=== PATIENT | female | born 1980 | race Caucasian/White ===

== ENCOUNTER 2018-02-26 14:54 | Emergency (ER) | payer OTHER ==
[2018-02-26 15:19] VITALS: BP 115/55; PULSE 85; TEMP 97.9; BMI 23.6
--- NOTE | 2018-02-26 15:20 | PDOC ---
Rapid Medical Evaluation Time Seen by Provider: 02/26/18 15:14 Medical Evaluation: Allergies Allergy/AdvReac Type Severity Reaction Status Date / Time No Known Allergies Allergy Verified 02/26/18 15:14 02/26/18 15:14 I have done a brief in-person assessment of this patient. The patient presents with a chief complaint of dizziness, nausea worse for past 2 days. Reports positive urine test. States greenish vaginal discharge x 2 months with no treatment. LMP 01/02/19 Pertinent physical exam findings NAD even and unlabored mild tenderness to lower abdomen I have ordered the following: urine preg, urine The patient will proceed to the Ed for further evaluation. Dx: nausea
[2018-02-26 16:18] LABS: HCG,QUALITATIVE URINE Positive
[2018-02-26 16:20] LABS: URINE APPEARANCE SLCLOUDY; URINE BILIRUBIN NEGATIVE (<2.0 mg/dL); URINE COLOR YELLOW; URINE GLUCOSE (UA) NEGATIVE (NEGATIVE); URINE KETONE NEGATIVE (NEGATIVE); URINE LEUK ESTERASE 3+ (NEGATIVE); URINE NITRITE NEGATIVE (NEGATIVE); URINE PROTEIN NEGATIVE (NEGATIVE); URINE UROBILINOGEN NEGATIVE mg/dL (0.2-1.0)
[2018-02-26 16:46] LABS: EPI CELLS FEW /HPF (FEW); URINE MUCUS RARE
--- NOTE | 2018-02-26 17:44 | PDOC ---
History of Present Illness - General Chief Complaint: ,Possible Stated Complaint: DIZZINESS Time Seen by Provider: 02/26/18 15:14 - History of Present Illness Initial Comments: 02/26/18 17:43 37 yo , LMP 01/02/18, at 8 wga confirmed home urine , who p/w epigastria abdominal pain, vomitting. Patient reports 1 month of unremitting, non pleuritic, non radiating, epigastria fullness, with no identifiable triggers or alleviators. Not alleviated with OTC Tylenol. Also endorses lightheadedness, lasting for seconds and resolving spontaneously. Aggravated with standing. + lower abdominal discomfort/pressure, no triggers or alleviators. + intermittent vaginal discharge x 1 month. + one episode of non bilious, non bloody emesis today. + decreased appetite. Denies postprandial pain. Denies BPR, urinary complaints, hematemesis, vaginal bleeding. Denies abdominal trauma. Patient denies [place], vision change, tinnitus, F/C, CP, Cough, wheezing, palpitations, SOB, urinary complaints, BPR, hematuria, diarrhea, constipation, weakness, sensory changes. PMHx: as noted above. Denies chronic NSAID use, endoscopy, or h/o abdominal surgery. ROS: as noted SHx: Denies Etoh, IVDA, tobacco use Allergies:NKDA Datastage Developer: None Past History - Past Medical History Allergies/Adverse Reactions: Allergies Allergy/AdvReac Type Severity Reaction Status Date / Time No Known Allergies Allergy Verified 02/26/18 15:14 Home Medications: Ambulatory Orders Cephalexin Monohydrate [Keflex -] 500 mg PO BID 7 Days #13 capsule MDD 2 tab 09/07 COPD: Yes Dialysis: No HTN: No - Surgical History Cholecystectomy: No - Immunization History Immunization Up to Date: No - Suicide/Smoking/Psychosocial Hx Smoking History: Never smoked Have you smoked in the past 12 months: No Information on smoking cessation initiated: No Hx Alcohol Use: No Drug/Substance Use Hx: No Review of Systems - Review of Systems Comments:: 02/26/18 17:43 GENERAL/CONSTITUTIONAL: No fever or chills. No weakness. HEAD, EYES, EARS, NOSE AND THROAT: No change in vision. No ear pain or discharge. No sore throat. CARDIOVASCULAR: No chest pain or shortness of breath RESPIRATORY: No cough, wheezing, or hemoptysis. GASTROINTESTINAL: + nausea, vomiting, abdominal pain. No diarrhea or constipation. GENITOURINARY: No dysuria, frequency, or change in urination. MUSCULOSKELETAL: No joint or muscle swelling or pain. No neck or back pain. SKIN: No rash NEUROLOGIC: + lightheadedness. No headache, vertigo, loss of consciousness, or change in strength/sensation. ENDOCRINE: No increased thirst. No abnormal weight change HEMATOLOGIC/LYMPHATIC: No anemia, easy bleeding, or history of blood clots. ALLERGIC/IMMUNOLOGIC: No hives or skin allergy. *Physical Exam - Vital Signs Last Vital Signs Temp Pulse Resp BP Pulse Ox 97.9 F 85 18 115/55 L 100 02/26/18 15:15 02/26/18 15:15 02/26/18 15:15 02/26/18 15:15 02/26/18 15:15 - Physical Exam Comments: 02/26/18 17:43 GENERAL: Awake, alert, and fully oriented, in no acute distress HEAD: No signs of trauma, normocephalic, atraumatic EYES: PERRLA, EOMI, sclera anicteric, conjunctiva clear ENT: Hearing grossly normal, nares patent, oropharynx clear without exudates. Moist mucosa NECK: Normal ROM, supple, no lymphadenopathy, JVD, or masses LUNGS: No distress, speaks full sentences, clear to auscultation bilaterally HEART: Regular rate and rhythm, normal S1 and S2, no murmurs, rubs or gallops, peripheral pulses normal and equal bilaterally. ABDOMEN: + epigastric ttp. Soft, NDS, normoactive bowel sounds. No guarding, no rebound. No masses. Neg CVA ttp. Neg goncalves sign. Neg McBurney point ttp. GENITORUINARY: Nml appearing external genitalia, absent blood in vaginal vault. Absent lesions. + scant white discharge. Cervical os closed. Neg CMT on BM. Neg adenexal tenderness. Chaperoned by Margi Cotton EXTREMITIES : Normal inspection, Normal range of motion, no edema. No clubbing or cyanosis. NEUROLOGICAL: Cranial nerves II through XII grossly intact. Normal speech, normal gait, no focal sensorimotor deficits SKIN: Warm, Dry, normal turgor, no rashes or lesions noted Moderate Sedation - Procedure Monitoring Vital Signs: Procedure Monitoring Vital Signs Temperature 97.9 F 02/26/18 15:15 Pulse Rate 85 02/26/18 15:15 Respiratory Rate 18 02/26/18 15:15 Blood Pressure 115/55 L 02/26/18 15:15 O2 Sat by Pulse Oximetry (%) 100 02/26/18 15:15 ED Treatment Course - LABORATORY CBC & Chemistry Diagram: 02/26/18 18:28 02/26/18 18:28 - ADDITIONAL ORDERS Additional order review: Laboratory Results 02/26/18 15:23 Urine Color Yellow Urine Appearance Slcloudy Urine pH 5.0 Ur Specific [place] 1.019 Urine Protein Negative Urine Glucose (UA) Negative Urine Ketones Negative Urine Blood Negative Urine Nitrite Negative Urine Bilirubin Negative Urine Urobilinogen Negative Ur Leukocyte Esterase 3+ H Urine WBC (Auto) 8 Urine RBC (Auto) 12 Ur Epithelial Cells Few Urine Mucus Rare Urine HCG, Qual Positive Medical Decision Making - Medical Decision Making 02/26/18 18:18 37 yo , LMP 01/02/18, at 4 wga confirmed home urine , who p/w epigastria abdominal pain, vomiting, lightheadedness.BP 115/55, vitals otherwise wnl, AF, A&Ox3. + Epigastric ttp. exam unremarkable. Will assess for viable IUP vs. cause of abdominal pain in preganancy. Will consider ectopic , threatened , ovarian pathology/torsion. Will also consider gastritis, esophagitis, gastroenteritis, biliary dz., pancreatitis, cystitis. Low suspicion appendicitis, colitis, pyelonephritis. ED Course: CBC, CMP, UA, UCx, HCG, LIPASE EKG Famotidine, Zofran, NS 02/26/18 20:24 CBC,CMP: Unremarkable UA: 3+ LE, 8 wbc, 12 rbc keflex 500 mg HCG [id number] Keflex sent to pharmacy + 02/26/18 20:26 TVUS: Single live IUG 8 wga, FHR 173, small cyst left ovary 2 x 1 x 2 Patient pain and nausea improved. patient advised to f/u with acidizer helper. VSS. Stable for d/c with return precautions. *DC/Admit/Observation/Transfer Diagnosis at time of Disposition: Abdominal pain during in first trimester - Discharge Dispostion Condition at time of disposition: Stable - Prescriptions Prescriptions: Cephalexin Monohydrate [Keflex -] 500 mg PO BID 7 Days #13 capsule MDD 2 tab - Referrals - Patient Instructions Printed Discharge Instructions: DI for Abdominal Pain -- Early , DI for Epigastric Pain Additional Instructions: Please return to the emergency department with any new or worsening symptoms or concerns. Please follow up with your primary care physician within 72 hours. Please take Keflex two times a day for urinary tract infection for 7 days. Please follow up at [address] [place] [address]. Call [phone], clinic. - Post Discharge Activity - Attestations Physician Attestion: 02/26/18 17:44 I attest to the information provided in this note.
[2018-02-26] MEDS ORDERED: ONDANSETRON 4 MG/2 ML VIAL IVPB ONE (18:09)
[2018-02-26] MEDS ORDERED: SODIUM CHLORIDE 1,000 ML IV STA (18:09)
[2018-02-26] MEDS ORDERED: FAMOTIDINE 20 MG/50 ML IVPB 20 MG/50 ML MG IVPB ONE ×2 (18:09→18:27)
[2018-02-26] MEDS ORDERED: CEPHALEXIN MONOHYDRATE 500 MG CAPSULE (UD) PO ONE (18:20)
[2018-02-26] MEDS ORDERED: ONDANSETRON 4 MG/2 ML VIAL ONE (18:27)
[2018-02-26] MEDS ORDERED: CEPHALEXIN MONOHYDRATE 250 MG CAPSULE (FP) ONE (18:28)
[2018-02-26 18:33] LABS: BASO % 0.3 % (0-2.0); EOS % 0.5 % (0-4.5); HEMATOCRIT 38.7 % (32.4-45.2); HEMOGLOBIN 13.6 GM/dL (10.7-15.3); LYMPH % 26.7 % (8-40); MCHC 35.1 g/dl (32.0-36.0); MEAN CELL VOLUME 82.7 fl (80-96); MEAN PLT VOLUME 8.4 fl (7.5-11.1); MONO % 9.5 % (3.8-10.2); PLATELET COUNT 218 K/MM3 (134-434); RBC 4.68 M/mm3 (3.60-5.2); RDW 12.5 % (11.6-15.6)
[2018-02-26 19:05] LABS: ALBUMIN 3.8 g/dl (3.4-5.0); ALK PHOS 63 U/L (45-117); ANION GAP 7 MMOL/L (8-16); BILIRUBIN,TOTAL 0.4 mg/dL (0.2-1); BLOOD UREA NITROGEN 10 mg/dL (7-18); CALCIUM 8.6 mg/dL (8.5-10.1); CHLORIDE 100 mmol/L (98-107); CO2 26 mmol/L (21-32); CREATININE 0.8 mg/dL (0.55-1.3); GLUCOSE,RANDOM 103 mg/dL (74-106); POTASSIUM 3.8 mmol/L (3.5-5.1); SGOT/AST 14 U/L (15-37); SGPT/ALT 23 U/L (13-61); SODIUM 134 mmol/L (136-145); TOT PROT 7.5 g/dl (6.4-8.2)
--- NOTE | 2018-02-26 20:35 | PDOC ---
Attending Attestation - [facility] HPI: This patient is a 37 year old Danish-speaking female, , currently 8 weeks , LMP 01/02/18, who presents with nausea, epigastric abdominal pain, and vomiting (1x). Patient reports 1 month of abdominal pain Not alleviated with OTC Tylenol. She also reports nausea which she attributes to the . She reports lightheadedness when she sits down or stands up too quickly. She reports intermittent vaginal discharge for 1 month. She reports one episode of non bilious, non bloody emesis today. Denies blood per rectum, diarrhea, constipation, urinary complaints, hematemesis , vaginal bleeding. Denies abdominal trauma. Patient denies headache, visual changes, tinnitus, fever, chills, chest pain, palpitations, cough, wheezing, SOB , weakness, or sensory changes. ObGYN: needs referral (lives in the [place]) 02/26/18 20:45 - Physicial Exam PE: GENERAL: Well-appearing, well-nourished. No apparent distress. HEENT: Normocephalic, atraumatic. PERRL, EOM intact. CARDIOVASCULAR: Normal S1, S2. Regular rate and rhythm. PULMONARY: Clear to auscultation bilaterally. ABDOMEN: Soft, gravid, epigastric ttp EXTREMITIES: Normal ROM in all four extremities. No gross deformities. SKIN: Warm, dry. No rash NEUROLOGICAL: No focal neurological deficits. Pelvic exam: please refer to Resident's exam (Dr. Nicole) <Samantha Cannon - Last Filed: 02/26/18 20:49> - Resident Resident Name: Herber Nicole - ED Attending Attestation I have performed the following: I have examined & evaluated the patient, The case was reviewed & discussed with the resident, I agree w/resident's findings & plan, Exceptions are as noted - HPI HPI: 02/26/18 20:34 37 yo female came because of nausea,vomiting and epigastric pain - Physicial Exam PE: 02/26/18 20:35 37 yo female whose LMP was 01/02/18 p/w nausea,vomiting and epigastric 02/26/18 23:14 please see above physical exam - Medical Decision Making 02/26/18 23:14 sl iup with good heart tones imp threatened ab 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
== END 2018-02-26 20:45 | disposition home or self-care (01) ==
LOC: JER 14:54
PROC: 3E033GC Introduction of Other Therapeutic Substance into Peripheral Vein, Percutaneous Approach (ICD-10-PCS; principal; 2018-02-26)
DX: O26.891 Other specified pregnancy related conditions, first trimester (principal); O23.31 Infections of other parts of urinary tract in pregnancy, first trimester; Z3A.08 8 weeks gestation of pregnancy
CPT/HCPCS: 36415; 76801-TC; 80053; 81003; 81015; 83690; 84702; 84703; 85025; 86850; 86900; 86901; 87086; 99282-25; J7030